=== PATIENT | male | born 1975 | race African-American/Black ===

== ENCOUNTER 2016-06-14 23:47 | Emergency (ER) | payer BC | END 2016-06-15 02:05 | disposition home or self-care (01) | LOC: ER 23:47 | DX: K40.90 Unilateral inguinal hernia, without obstruction or gangrene, not specified as recurrent (principal); I11.0 Hypertensive heart disease with heart failure; I50.9 Heart failure, unspecified; F17.210 Nicotine dependence, cigarettes, uncomplicated; Z79.899 Other long term (current) drug therapy; X50.9XXA Other and unspecified overexertion or strenuous movements or postures, initial encounter; Y92.69 Other specified industrial and construction area as the place of occurrence of the external cause; Y99.0 Civilian activity done for income or pay ==